=== PATIENT | male | born 1985 | race Caucasian/White ===

== ENCOUNTER 2022-02-05 10:41 | Inpatient (IN) | payer OTHER ==
[~2022-02-05] VITALS: Ht 193 cm; Wt 86.2 kg
[2022-02-05 10:50] VITALS: BP 142/70
[2022-02-05] MEDS ORDERED: ESCITALOPRAM OX10 MG PO (10:53)
[2022-02-05] MEDS ORDERED: ALLEGRA ALLERGY60 M2 PO (10:54)
[2022-02-05 11:35] LABS: BASO % 0.4 % (0.0-1.0); EOS % 0.2 % (1.0-4.0); HEMATOCRIT 42.5 % (42.0-52.0); LYMPH # 1.1 10*3/uL (1.3-4.4); LYMPH % 12.6 % (27.0-41.0); MEAN CELL VOLUME 97.9 fl (80.0-94.0); MEAN CORPUSCULAR HGB 32.5 pg (27.0-31.0); MEAN CORPUSCULAR HGB CONC 33.2 g/dl (33.0-37.0); MEAN PLATELET VOLUME 8.8 fl (9.6-12.3); MONO # 0.6 10*3/uL (0.1-1.0); MONO % 7.1 % (3.0-9.0); NEUT # 6.8 10*3/uL (2.3-7.9); NEUT % 79.6 % (47.0-73.0); PLATELET COUNT AUTOMATED 287 10*3/uL (130-400); RED BLOOD COUNT 4.34 10*6/uL (4.50-5.90); RED CELL DISTRI WIDTH 12.9 % (0-14.5); WHITE BLOOD COUNT 8.5 10*3/uL (4.8-10.8)
[2022-02-05 11:58] LABS: ALKALINE PHOSPHATASE 96 U/L (45-117); BUN 13 mg/dl (7-24); CHLORIDE 105 mmol/L (98-107); CREATININE 0.79 mg/dL (0.70-1.30); POTASSIUM 3.9 mmol/L (3.5-5.1); SGOT/AST 56 IU/L (3-35); SGPT/ALT 87 U/L (12-78); SODIUM 137 mmol/L (136-145)
[2022-02-05 12:00] LABS: ETHYL ALCOHOL < 3.0 mg/dl (<3)
[2022-02-05 14:42] LABS: BILIRUBIN Negative (Negative); BLOOD Negative (Negative); CLARITY Clear (Clear); COLOR Dark Yellow (Yellow); GLUCOSE Negative (Negative); KETONE Trace (Negative); LEUKO ESTERASE Negative (Negative); NITRITE Negative (Negative); SPECIFIC GRAVITY 1.015 (1.001-1.030); UROBILINOGEN 0.2 E.U./dl (0.0-1.0)
[2022-02-05 14:50] LABS: BACTERIA 1+; EPITHELIAL CELLS 0-2; MUCOUS 1+; URINE AMPHETAMINES < 1000 (1000ng/ml); URINE BARBITURATES < 200 (200ng/ml); URINE BENZODIAZEPINES < 200 (200ng/ml); URINE CANNABINOIDS (THC) > 50 (50ng/ml); URINE COCAINE < 300 (300ng/ml); URINE METHADONE < 300 (300ng/ml); URINE OPIATES < 300 (300ng/ml)
[2022-02-05 14:52] LABS: URINE PHENCYCLIDINE < 25 (25ng/ml)
[2022-02-05 16:00] VITALS: BP 134/60
[2022-02-05 20:00] VITALS: BP 142/81
[2022-02-06] VITALS: BP 121/62
[2022-02-06 08:00] VITALS: BP 131/92
[2022-02-06 12:00] VITALS: BP 121/83
[2022-02-06 16:00] VITALS: BP 123/77
[2022-02-06 20:00] VITALS: BP 113/56; BP 122/67
[2022-02-07] VITALS: BP 107/54
[2022-02-07 08:00] VITALS: BP 110/57
[2022-02-07 12:00] VITALS: BP 127/70
[2022-02-07] MEDS ORDERED: METHOCARBAMOL750 M1 PO (12:26)
[2022-02-07] MEDS ORDERED: ONDANSETRON HYDR4 M1 PO (12:26)
[2022-02-07] MEDS ORDERED: IBUPROFEN600 MG PO (12:26)
[2022-02-07] MEDS ORDERED: ATARAX,VISTARIL50 MG PO (12:26)
[2022-02-07] MEDS ORDERED: DICYCLOMINE HYD20 MG PO (12:26)
[2022-02-07 15:50] VITALS: BP 106/55
[2022-02-07 20:00] VITALS: BP 114/57
[2022-02-08] VITALS: BP 106/59
[2022-02-08 08:00] VITALS: BP 120/61
== END 2022-02-08 11:38 | disposition home or self-care (01) | DRG 897 ==
LOC: ED 10:41 → 4E 12:05 → EDHOLD 12:05 → 4E 14:40
PROVIDERS: Physician Assistant; ADMIT Internal Medicine; ATTEND Internal Medicine
DX: F10.939 Alcohol use, unspecified with withdrawal, unspecified (principal); S09.90XA Unspecified injury of head, initial encounter; R74.01 Elevation of levels of liver transaminase levels; X58.XXXA Exposure to other specified factors, initial encounter; Y93.89 Activity, other specified; Y92.89 Other specified places as the place of occurrence of the external cause; Y99.8 Other external cause status